=== PATIENT | female | born 1960 | race Caucasian/White ===

== ENCOUNTER → 2017-01-30 | Outpatient (CLI) | payer BC ==
[~2017-01-30] MED LIST: ASPI81TA28 PO; ATOR10TA82 PO; DICL50TA3 PO; DICY20TA10 PO; FLUT0.15 NAE; LISI-725 PO; LISI5TAB3 PO; MULT-506 PO; PSEU60TA80 PO; TRAM-10 PO
[2017-01-30 10:30] LABS: CALCIUM 9.1 mg/dl (8.5-10.1)
[2017-01-30 10:41] LABS: ALT/SGPT 31 U/L (12-78); BLOOD UREA NITROGEN 19 mg/dl (7-18); BUN/CREATININE RATIO 27.4 (10-20); CARBON DIOXIDE 30 mmol/L (21-32); CHLORIDE 107 mmol/L (98-107); CHOLESTEROL 146 mg/dl (0-200); CREATININE 0.68 mg/dl (0.60-1.20); GLUCOSE 104 mg/dl (70-99); SODIUM 143 mmol/L (136-145); TRIGLYCERIDES 85 mg/dl (0-150); VERY LOW DENSITY LIPOPROT CALC 17 mg/dl
[2017-01-30 10:44] LABS: ALB/GLOB RATIO 1.3 (0.9-2); ALKALINE PHOSPHATASE 92 U/L (45-117); AST/SGOT 17 U/L (15-37); CHOLESTEROL/HDL RATIO 2.8; HDL CHOLESTEROL 53 mg/dl; LDL CHOLESTEROL CALCULATED 76 mg/dl
== END | disposition home or self-care (01) ==
LOC: C.LAB 08:21
PROVIDERS: ATTEND Family Medicine
DX: I10 Essential (primary) hypertension (principal); E78.00 Pure hypercholesterolemia, unspecified

== ENCOUNTER → 2017-02-17 | Outpatient (CLI) | payer BC ==
--- NOTE | 2017-02-17 08:29 | DIAGNOSTIC IMAGING REPORT ---
ABDOMINAL ULTRASOUND, RIGHT UPPER QUADRANT HISTORY: R10.11 Intermittent right upper quadrant abdominal [id number]. COMPARISON: Abdomen and pelvis CT 08/11/2013. FINDINGS: Pancreas: The pancreas demonstrates a normal echotexture. Liver: Unremarkable. Gallbladder: No gallbladder wall thickening. No gallstones. CBD: 6 mm which is top normal in diameter. Right kidney: No hydronephrosis. IMPRESSION: No significant abnormality identified within the right upper quadrant. Electronically signed by: Chris Gates M.D. 02/17/2017 8:28 AM Dictated Date/Time: 02/17/2017 8:27 AM
[2017-02-17 10:55] LABS: BASO % 0.5 %; BASO ABS # 0.03 K/uL (0-0.2); COMPLETE YES; EOS % 1.4 %; HEMATOCRIT 43.1 % (37-47); IG% 0.2 %; LYMPH ABS # 2.62 K/uL (1.2-3.4); MEAN CELL VOLUME 94.3 fL (80-100); MEAN CORPUSCULAR HEMOGLOBIN 31.1 pg (25-34); MEAN CORPUSCULAR HGB CONC 32.9 g/dl (32-36); MONO % 8.1 %; NEUT % 48.8 %; PLATELET COUNT 194 K/uL (130-400); RED BLOOD COUNT 4.57 M/uL (4.2-5.4); WHITE BLOOD COUNT 6.39 K/uL (4.8-10.8)
[2017-02-17 10:59] LABS: AMYLASE 51 U/L (25-115)
== END | disposition home or self-care (01) ==
LOC: C.ULTRBC 07:52
PROVIDERS: ATTEND Nurse Practitioner Adult Health
DX: R10.11 Right upper quadrant pain (principal)

== ENCOUNTER → 2017-09-08 | Outpatient (CLI) | payer BC ==
[~2017-09-08] MED LIST changes: -ATOR10TA82 PO; -DICL50TA3 PO; -FLUT0.15 NAE; -LISI-725 PO; -PSEU60TA80 PO; +SINCALIDE IV ONE; +SODIUM CHLORIDE 0.9% IV ONE; -TRAM-10 PO
--- NOTE | 2017-09-08 12:47 | DIAGNOSTIC IMAGING REPORT ---
NUCLEAR MEDICINE HEPATOBILIARY SCAN WITH EJECTION FRACTION HISTORY: R10.11 Intermittent right upper quadrant abdominal [id number] COMPARISON: Abdominal ultrasound 02/17/2017. TECHNIQUE: Immediately following the intravenous administration of 5.5 mCi Tc-99m Choletec, dynamic anterior abdominal imaging pre/post 1.95 mcg of Kinevac was performed. FINDINGS: Uniform hepatic tracer accumulation is shown. Prompt intrahepatic biliary excretion is seen. The gallbladder, common bile duct, and small bowel are all visualized by 25 minutes. This appearance represents the normal sequence of biliary excretion. The gall bladder ejection fraction following administration of Kinevac was 21% (normal >35%). IMPRESSION: 1. No evidence for cystic duct obstruction. 2. Gallbladder ejection fraction calculated to be 21 %. This is abnormally low and could represent biliary dyskinesia. Electronically signed by: Crhis Gates M.D. 09/08/2017 12:46 PM Dictated Date/Time: 09/08/2017 12:44 PM
== END | disposition home or self-care (01) ==
LOC: C.NUCL 10:05
PROVIDERS: ATTEND Nurse Practitioner Adult Health
DX: R10.11 Right upper quadrant pain (principal)

== ENCOUNTER → 2017-09-22 | Day surgery (SDC) | payer BC ==
[2017-09-17 10:04] VITALS: BMI 35.0
--- NOTE | 2017-09-17 10:34 | PAT Medication Instructions ---
Service Date Sep 17, 2017. Current Home Medication List Atorvastatin (Lipitor), 10 MG PO Q2D Diclofenac (Voltaren), 50 MG PO QAM Fluticasone Propionate (Nasal) (Flonase Allergy Relief), 1-2 SPRAY JUWAN UD PRN for Seasonal Allergies Lisinopril (Zestril), 10 MG PO QAM Pseudoephedrine-Guaifenesin (Mucinex D), 1 TAB PO BID PRN for Seasonal Allergies Tramadol (Ultram), 1 TAB PO UD PRN for Pain Medication Instructions For Your Scheduled Surgery - Hold the following medications the morning of surgery: Lisinopril (Zestril), 10 MG PO QAM Pseudoephedrine-Guaifenesin (Mucinex D), 1 TAB PO BID PRN for Seasonal Allergies Diclofenac (Voltaren), 50 MG PO QAM (otherwise okay to continue per surgeon) - Take the following medications the morning of surgery with a sip of water OTHERWISE NOTHING TO EAT OR DRINK AFTER MIDNIGHT: Fluticasone Propionate (Nasal) (Flonase Allergy Relief), 1-2 SPRAY JUWAN UD PRN for Seasonal Allergies Tramadol (Ultram), 1 TAB PO UD PRN for Pain (may take if needed up to 4 hours prior to surgery) Atorvastatin (Lipitor), 10 MG PO Q2D - Take the following medications as scheduled the night before surgery: Fluticasone Propionate (Nasal) (Flonase Allergy Relief), 1-2 SPRAY JUWAN UD PRN for Seasonal Allergies Tramadol (Ultram), 1 TAB PO UD PRN for Pain Pseudoephedrine-Guaifenesin (Mucinex D), 1 TAB PO BID PRN for Seasonal Allergies If you have any questions please call us at [phone] or [phone] or [phone]
[2017-09-17 11:55] LABS: BASO % 0.5 %; BASO ABS # 0.03 K/uL (0-0.2); COMPLETE YES; HEMATOCRIT 39.7 % (37-47); LYMPH % 36.1 %; LYMPH ABS # 2.13 K/uL (1.2-3.4); MEAN CELL VOLUME 94.7 fL (80-100); MEAN CORPUSCULAR HEMOGLOBIN 31.3 pg (25-34); MEAN PLATELET VOLUME 10.8 fL (7.4-10.4); MONO % 8.1 %; NEUT % 54.3 %; PLATELET COUNT 195 K/uL (130-400); RED BLOOD COUNT 4.19 M/uL (4.2-5.4)
[2017-09-17 12:06] LABS: BUN/CREATININE RATIO 28.1 (10-20); CREATININE 0.71 mg/dl (0.60-1.20); POTASSIUM 4.1 mmol/L (3.5-5.1)
[~2017-09-22] VITALS: Ht 170.2 cm; Wt 102.0 kg
[~2017-09-22] MED LIST changes: -ASPI81TA28 PO; +ATOR10TA82 PO; +ATROPINE SULFATE 0.1 MG/ML 5ML SYR IV PRN; +BUPIVACAINE/EPINEPHRINE 0.5% MPF 1:200,000 30 ML VIAL ONE; +CEFAZOLIN 2000MG IV PUSH 10 ML IV SCH; +CHECK SCOPOLAMINE PATCH PLACEMENT SCH; +DEXAMETHASONE SOD INJ 4 MG/ML VIAL ONE; +DICL50TA3 PO; -DICY20TA10 PO; +EpHEDrine SULFATE INJ 50 MG/ML AMP IV PRN; +EpHEDrine SULFATE INJ 50 MG/ML AMP ONE; +FENTANYL CITRATE INJ 50 MCG/1 ML 2 ML VIAL ONE; +FLUT0.15 NAE; +GLYCOPYRROLATE INJ 0.2 MG/ML VIAL ONE; +HYDR-5688 PO; +HYDROCODONE/ACETAMOPHEN 5/325MG TAB PO PRN; +HYDROmorphone INJ 1 MG/ML SYR ONE; +LACTATED RINGER'S 1000ML 1,000 ML IV SCH; +LIDOCAINE HCL 2% 2 ML VIAL (20MG/ML) ONE; +LISI-725 PO; -LISI5TAB3 PO; +MIDAZOLAM HCL 1 MG/ML 2ML VIAL ONE; -MULT-506 PO; +NEOSTIGMINE METHYLSULFATE 5 MG/5 ML SYR ONE; +ONDANSETRON INJ 2 MG/ML 2 ML VIAL IV PRN; +ONDANSETRON INJ 2 MG/ML 2 ML VIAL ONE; +PHENYLEPHRINE 100MCG/ML 5ML SYR IV PRN; +PHENYLEPHRINE HCL INJ 10 MG/ML VIAL ONE; +PROPOFOL IV EMULSION 10 MG/ML 20 ML VIAL IV ONE; +PSEU60TA80 PO; +ROCURONIUM BROMIDE 10 MG/ML 5 ML VIAL IV ONE; +SCOPOLAMINE 1.5 MG TDSY TD SCH; -SINCALIDE IV ONE; +SODIUM CHLORIDE 0.9% 1000ML 1,000 ML IV SCH; -SODIUM CHLORIDE 0.9% IV ONE; +TRAM-10 PO
[2017-09-22 05:47] VITALS: BP 139/83; PULSE 81; TEMP 37; O2SAT 96; Ht 170.2 cm; Wt 102.0 kg
--- NOTE | 2017-09-22 06:59 | History & Physical Bridge Note ---
H&P Re-Evaluation Bridge Note: I have examined the patient, reviewed the History & Physical and in the interval since the performance of the History & Physical I have noted the following changes of clinical significance: No changes noted
[2017-09-22] MEDS: HYDROmorphone INJ 2 MG/ML SYR/VIAL IV PRN ×3 (08:13→08:23)
--- NOTE | 2017-09-22 08:22 | Discharge Instructions ---
Discharge Instructions Date of Service Sep 22, 2017. Visit Reason for Visit: Biliary Dyskinesia Discharge Discharge Diagnosis / Problem: Biliary Dyskinesia Discharge Goals Goal(s): Decrease discomfort, Improve function Activity Recommendations Activity Limitations: as noted below Lifting Limitations: no more than 10 pounds, until after follow-up appointment Exercise/Sports Limitations: until after follow-up appointment Shower/Bathe: tomorrow (Please do not submerge incision ( no baths, pools or hottubs)) Driving or Machine Use: resume 3 days after discharge (Please do not drive while using narcotic pain medication. ) Anesthesia . Post Anesthesia Instructions: If you have had General Anesthesia or IV Sedation: * Do not drive today. * Resume driving when surgeon permits. * Do not make important decisions or sign legal documents today. * Call surgeon for: 1. Temperature elevations greater than 101 degrees F. 2. Uncontrollable pain. 3. Excessive bleeding. 4. Persistent nausea and vomiting. 5. Medication intolerance (nausea, vomiting or rash). * For nausea and vomiting use only clear liquids such as: tea, soda, bouillon until nausea subsides, then gradually increase diet as tolerated. * If you have any concerns or questions, call your surgeon's office. If physician is unavailable and it is an emergency, call 911 or go to the nearest emergency room. . Instructions / Follow-Up Instructions / Follow-Up You have surgical glue covering your incision sites. Please allow this to fall off on its own. Please follow-up with Dr. Pandey in 2 weeks. Please contact our office at to schedule an appointment if you have not done so already. [facility]. [address] [place] [address] Diet Recommendations Recommended Home Diet: no limitations, resume previous diet Procedures Procedures Performed: Laparoscopic Cholecystectomy, Repair of Umbilical Hernia Pending Studies Studies pending at discharge: yes List of pending studies: Pathology Medical Emergencies . Who to Call and When: Medical Emergencies: If at any time you feel your situation is an emergency, please call 911 immediately. . Non-Emergent Contact Non-Emergency issues call your: Primary Care Provider, Surgeon Call Non-Emergent contact if: you have a fever, temperature is above 101.5, your pain is not controlled, your pain is worsening, wound has increased drainage, wound has increased redness . . "Provider Documentation" section prepared by Antonio Ansari. . [place] Drug Monitoring Program Search Results: patient reviewed within database, no issues identified
--- NOTE | 2017-09-22 08:34 | [facility] Operative Report ---
Operative Report Operative Date Sep 22, 2017. Pre-Operative Diagnosis Biliary Dyskinesia Post-Operative Diagnosis Biliary Dyskinesia, Umbilical Hernia; hiatal hernia Procedure(s) Performed Laparoscopic Cholecystectomy, Repair of Umbilical Hernia Surgeon Dr. Harjeet Pandey Carbon Accountant Surgeon(s) Antonio Ansari PA-C Estimated Blood Loss 5ml Findings umbilical hernia, normal appearance to the gallbladder, moderate sized hiatal hernia Specimens A.) Gallbladder and contents Anesthesia get Disposition Recovery Room / PACU Description of Procedure After informed consent was obtained the patient was taken to the operating room room and placed in the supine position. After successful intubation the abdomen was sterilely prepped and draped in usual fashion. After the patient was relaxed there was an obvious umbilical hernia that I had not seen before. I made an small incision directly over top of it and carried it down through the soft tissue using electrocautery. I encountered a hernia sac with some preperitoneal fat incarcerated within it. I excised the fat as well as the hernia sac. I then placed over Vicryl stay sutures in the edges of the defect and use blunt finger penetration and of the peritoneum. A finger sweep was performed and a 12 mm Abdullahi trocar was placed. The abdomen was insufflated to 18 mmHg. The laparoscope was inserted and the abdomen was examined in 360 degrees. A subxiphoid 5 mm port and 2 right upper quadrant 5 mm ports were placed under direct vision. The the patient was then placed in reverse Trendelenburg position and slightly airplaned to the left. We began by looking around the abdomen. I elevated the left lobe liver and noted about a 4-5 cm hernia defect with a small amount of gastric incarceration which easily reduced. No other abnormalities were identified. The gallbladder was grasped and elevated superiorly and laterally. [place] dissector was used to take down adhesions around the neck of the gallbladder. The cystic duct was readily identified and skeletonized. It was clipped twice proximally once distally and transected. In similar fashion the cystic artery was identified skeletonized clipped and divided. The gallbladder was removed from the gallbladder fossa intact. It was placed into an Endo Catch bag. Several small bleeding points on the gallbladder fossa were controlled using electrocautery. Thorough irrigation of the upper abdomen was performed. At the end of the procedure there was adequate hemostasis and no evidence of a bile leak. The gallbladder as well as all the trochars were removed. The abdomen was desufflated. We closed the umbilical hernia defect using multiple 0 Vicryl sutures in figure-of- eight fashion. We thoroughly irrigated all the wounds and closed the skin using 4-0 Monocryl. Marcaine was injected around all the incisions for postoperative analgesia and skin glue used as a dressing. The patient was awaken extubated and transferred recovery in stable condition I attest to the content of the Intraoperative Record and any orders documented therein. Any exceptions are noted below.
[2017-09-22 09:00] VITALS: BP 146/86; PULSE 64; TEMP 36.6; O2SAT 95
[2017-09-22 09:25] VITALS: BP 155/86; PULSE 63; O2SAT 93
[2017-09-22 09:54] VITALS: BP 174/88; PULSE 58; TEMP 36.6; O2SAT 94
--- NOTE | 2017-09-22 10:09 | Anesthesiology Progress Note ---
Anesthesia Post Op Note Date & Time Sep 22, 2017 at 10:09 Vital Signs Pain Intensity: 5 Vital Signs Past 12 Hours Date Time Temp Pulse Resp B/P (MAP) Pulse Ox O2 Delivery O2 Flow Rate FiO2 09/22/17 09:54 36.6 58 18 174/88 94 Room Air 09/22/17 09:25 63 18 155/86 93 Room Air 09/22/17 09:00 36.6 64 18 146/86 95 Room Air 09/22/17 08:55 36.1 63 15 136/82 98 Nasal Cannula 2 09/22/17 08:45 71 14 131/74 96 Nasal Cannula 2 09/22/17 08:35 58 12 140/87 94 Nasal Cannula 2 09/22/17 08:25 56 12 137/80 100 Oxymask 10 09/22/17 08:15 59 14 144/81 100 Oxymask 10 09/22/17 08:09 35.4 63 14 144/79 100 Oxymask 10 09/22/17 05:47 37.0 81 18 139/83 (101) 96 Room Air Notes Mental Status: alert / awake / arousable, participated in evaluation Pt Amnestic to Procedure: Yes Nausea / Vomiting: adequately controlled Pain: adequately controlled Airway Patency, RR, SpO2: stable & adequate BP & HR: stable & adequate Hydration State: stable & adequate Anesthetic Complications: no major complications apparent
== END | disposition home or self-care (01) ==
LOC: C.ACU 05:15
PROVIDERS: ATTEND Surgery
DX: K82.8 Other specified diseases of gallbladder (principal); K42.9 Umbilical hernia without obstruction or gangrene; K44.9 Diaphragmatic hernia without obstruction or gangrene; I10 Essential (primary) hypertension; M19.90 Unspecified osteoarthritis, unspecified site; E78.00 Pure hypercholesterolemia, unspecified; G51.0 Bell's palsy; Z68.35 Body mass index [BMI] 35.0-35.9, adult; E66.9 Obesity, unspecified; Z90.710 Acquired absence of both cervix and uterus; Z98.890 Other specified postprocedural states; Z79.899 Other long term (current) drug therapy; Z82.49 Family history of ischemic heart disease and other diseases of the circulatory system; Z83.3 Family history of diabetes mellitus; Z82.0 Family history of epilepsy and other diseases of the nervous system

== ENCOUNTER 2017-11-19 05:03 | Inpatient (IN) | payer BC ==
[2017-10-20 12:29] VITALS: BMI 34.0
--- NOTE | 2017-10-20 13:09 | PAT Medication Instructions ---
Service Date Oct 20, 2017. Current Home Medication List Atorvastatin (Lipitor), 10 MG PO Q2D Diclofenac (Voltaren), 50 MG PO QAM Fluticasone Propionate (Nasal) (Flonase Allergy Relief), 1-2 SPRAY JUWAN UD PRN for Seasonal Allergies Guaifenesin (Mucinex Maximum Strength), 1 TAB PO HS Lisinopril (Zestril), 10 MG PO QAM Multivitamin (Multivitamin), 1 TAB PO DAILY Tramadol (Ultram), 1 TAB PO QID [Fiber Gummies], 1 TAB PO QPM Medication Instructions For Your Scheduled Surgery - Hold the following medications 7 days prior to surgery: Diclofenac (Voltaren), 50 MG PO QAM - Hold the following medications the morning of surgery: Multivitamin (Multivitamin), 1 TAB PO DAILY Lisinopril (Zestril), 10 MG PO QAM - Take the following medications the morning of surgery with a sip of water: Fluticasone Propionate (Nasal) (Flonase Allergy Relief), 1-2 SPRAY JWUAN UD PRN for Seasonal Allergies (if needed) Atorvastatin (Lipitor), 10 MG PO Q2D Tramadol (Ultram), 1 TAB PO QID (if needed, can be taken up to four hours before surgery) - Take the following medications as scheduled the night before surgery: [Fiber Gummies], 1 TAB PO QPM Guaifenesin (Mucinex Maximum Strength), 1 TAB PO HS Fluticasone Propionate (Nasal) (Flonase Allergy Relief), 1-2 SPRAY JUWAN UD PRN for Seasonal Allergies (if needed) Tramadol (Ultram), 1 TAB PO QID If you have any questions please call us at [phone] or [phone] or [phone]
--- NOTE | 2017-10-20 13:40 | DIAGNOSTIC IMAGING REPORT ---
CHEST 2 VIEWS ROUTINE CLINICAL HISTORY: PAT preoperative evaluation COMPARISON STUDY: No previous studies for comparison. FINDINGS: The bones soft tissues and hemidiaphragms are normal. The cardiomediastinal silhouette is normal. The lungs are clear. The pulmonary vasculature is normal. IMPRESSION: Negative chest. The above report was generated using voice recognition software. It may contain grammatical, syntax or spelling errors. Electronically signed by: Francesco Abad M.D. 10/20/2017 1:39 PM Dictated Date/Time: 10/20/2017 1:39 PM
[2017-10-20 14:00] LABS: BASO % 0.5 %; BASO ABS # 0.03 K/uL (0-0.2); EOS % 2.7 %; EOS ABS # 0.15 K/uL (0-0.5); HEMATOCRIT 38.5 % (37-47); LYMPH % 42.6 %; LYMPH ABS # 2.33 K/uL (1.2-3.4); MEAN CELL VOLUME 93.9 fL (80-100); MEAN CORPUSCULAR HEMOGLOBIN 31.7 pg (25-34); MEAN CORPUSCULAR HGB CONC 33.8 g/dl (32-36); MEAN PLATELET VOLUME 10.3 fL (7.4-10.4); MONO % 6.8 %; MONO ABS # 0.37 K/uL (0.11-0.59); NEUT % 47.4 %; NEUT ABS # 2.59 K/uL (1.4-6.5); PLATELET COUNT 214 K/uL (130-400); RED CELL DISTRIBUTION WIDTH CV 12.4 % (11.5-14.5); RED CELL DISTRIBUTION WIDTH SD 42.1 fL (36.4-46.3); WHITE BLOOD COUNT 5.47 K/uL (4.8-10.8)
[2017-10-20 14:15] LABS: PTT PATIENT 28.1 SECONDS (21.0-31.0)
[2017-10-20 14:49] LABS: HEMOGLOBIN A1C 5.8 % (4.5-5.6)
[2017-10-20 15:41] LABS: ALBUMIN 3.7 gm/dl (3.4-5.0); CALCIUM 8.9 mg/dl (8.5-10.1); CREATININE 0.69 mg/dl (0.60-1.20); POTASSIUM 3.9 mmol/L (3.5-5.1)
--- NOTE | 2017-10-28 10:51 | HISTORY & PHYSICAL EXAMINATION ---
DATE OF ADMISSION: 11/19/2017 CHIEF COMPLAINT: Left knee pain. HISTORY OF PRESENT ILLNESS: Ms. Ramires is a 57-year-old female with a multiple year history of left knee pain. The patient rates her pain in 8-10/10. She has pain with her daily activities. She has limited standing and walking tolerance. Pain is worse with weightbearing. The patient has been taking tramadol. She has had injections, bracing and a walking program without relief. She has failed conservative treatment and is scheduled for left knee replacement. PAST MEDICAL HISTORY: Hypertension, hypercholesterolemia. She denies heart disease, diabetes or DVT. PAST SURGICAL HISTORY: , hysterectomy, hernia repair, cholecystectomy and knee arthroscopy. ALLERGIES: IVP DYE. SOCIAL HISTORY: The patient drinks one drink per week. She lives in a 2-story home. 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 FAMILY HISTORY: Negative for DVT. MEDICATIONS: Lisinopril 1 tablet daily, tramadol 50 mg p.r.n., diclofenac 75 mg t.i.d. REVIEW OF SYSTEMS: See HPI. Ten other systems reviewed, all negative. PHYSICAL EXAMINATION: VITAL SIGNS: Height 5 foot 7 inches, weight 221 pounds, BMI is 35. GENERAL: This is a well-developed, well-nourished female who is alert and oriented x3. Mood and affect are appropriate. HEENT: Normocephalic, atraumatic. Mucous membranes are moist and intact. NECK: Supple without lymphadenopathy. HEART: Regular rate and rhythm without murmurs, rubs or gallops. LUNGS: Clear to auscultation without wheezes or rhonchi. ABDOMEN: Soft and nontender. Bowel sounds are equal and active. EXTREMITIES: No ecchymosis, redness or warmth. She has varus deformity. Range of motion is from 5-110 degrees with +2 laxity. She has mild distal edema. She is neurovascularly intact with +5/5 strength. X-RAY EXAMINATION: AP and lateral views show joint space narrowing and osteophyte formation. IMPRESSION: Degenerative joint disease, left knee. PLAN: The patient will be admitted for a left total knee arthroplasty. We will plan on aspirin for DVT prophylaxis. The patient will have [facility] for home physical therapy, referral has been placed preoperatively.
[~2017-11-19] VITALS: Ht 170.2 cm; Wt 99.0 kg
[2017-11-19] VITALS (10 sets, daily range): BP systolic 110–157; BP diastolic 70–92; PULSE 66–94; TEMP 36.3–37.1; O2SAT 94–98; Ht 170.2 cm; Wt 99.0 kg
[~2017-11-19 05:03] MED LIST changes: -ATROPINE SULFATE 0.1 MG/ML 5ML SYR IV PRN; -BUPIVACAINE/EPINEPHRINE 0.5% MPF 1:200,000 30 ML VIAL ONE; -CEFAZOLIN 2000MG IV PUSH 10 ML IV SCH; -CHECK SCOPOLAMINE PATCH PLACEMENT SCH; -DEXAMETHASONE SOD INJ 4 MG/ML VIAL ONE; -EpHEDrine SULFATE INJ 50 MG/ML AMP IV PRN; -EpHEDrine SULFATE INJ 50 MG/ML AMP ONE; -FENTANYL CITRATE INJ 50 MCG/1 ML 2 ML VIAL ONE; +FIBER GUMMIES PO; -GLYCOPYRROLATE INJ 0.2 MG/ML VIAL ONE; +GUAI1TAB69 PO; -HYDR-5688 PO; -HYDROCODONE/ACETAMOPHEN 5/325MG TAB PO PRN; -HYDROmorphone INJ 1 MG/ML SYR ONE; -LACTATED RINGER'S 1000ML 1,000 ML IV SCH; -LIDOCAINE HCL 2% 2 ML VIAL (20MG/ML) ONE; -MIDAZOLAM HCL 1 MG/ML 2ML VIAL ONE; +MULT-506 PO; -NEOSTIGMINE METHYLSULFATE 5 MG/5 ML SYR ONE; -ONDANSETRON INJ 2 MG/ML 2 ML VIAL IV PRN; -ONDANSETRON INJ 2 MG/ML 2 ML VIAL ONE; -PHENYLEPHRINE 100MCG/ML 5ML SYR IV PRN; -PHENYLEPHRINE HCL INJ 10 MG/ML VIAL ONE; -PROPOFOL IV EMULSION 10 MG/ML 20 ML VIAL IV ONE; -PSEU60TA80 PO; -ROCURONIUM BROMIDE 10 MG/ML 5 ML VIAL IV ONE; -SCOPOLAMINE 1.5 MG TDSY TD SCH; -SODIUM CHLORIDE 0.9% 1000ML 1,000 ML IV SCH
[2017-11-19] MEDS ORDERED: DEXAMETHASONE 4 MG TAB PO SCH (06:00)
[2017-11-19] MEDS ORDERED: ROPIVACAINE 5MG/ML 30 ML 150 MG, BUPIVACAINE 0.5% MPF INJ 30 ML, EpINEphrine HCL INJ 0.... INFIL SCH ×8 (06:00)
[2017-11-19] MEDS ORDERED: LACTATED RINGER'S 1000ML 1,000 ML IV SCH (06:00)
[2017-11-19] MEDS ORDERED: ACETAMINOPHEN 500 MG TAB PO SCH (06:00)
[2017-11-19] MEDS ORDERED: LACTATED RINGER'S 1000ML IV SCH (06:00)
[2017-11-19] MEDS ORDERED: FAMOTIDINE 20 MG TAB PO SCH (06:00)
[2017-11-19] MEDS ORDERED: CEFAZOLIN 2000MG IV PUSH 15 ML IV SCH (06:00)
[2017-11-19] MEDS ORDERED: METOCLOPRAMIDE HCL 10 MG TAB PO SCH (06:00)
[2017-11-19] MEDS ORDERED: CeleBREX 200 MG CAP PO SCH (06:00)
[2017-11-19] MEDS ORDERED: LACTATED RINGER'S 1000ML 500 ML IV SCH (06:00)
[2017-11-19] MEDS ORDERED: GABAPENTIN 300 MG CAP PO SCH (06:00)
[2017-11-19] MEDS: TRANEXAMIC ACID INJ 1,000 MG in SYRINGE 0 ML IV SCH ×2 (06:30→06:59)
[2017-11-19] MEDS ORDERED: BUPIVACAINE 0.5 % 5 MG/1 ML PF 10ML VIAL ONE (06:34)
[2017-11-19] MEDS ORDERED: ORTHO JOINT ANESTHETIC ONE (06:35)
[2017-11-19] MEDS ORDERED: BUPIVACAINE 0.25% 30 ML VIAL ONE (06:35)
[2017-11-19] MEDS ORDERED: POVIDONE-IODINE OP SOLN 30 ML BTL ONE (06:36)
[2017-11-19] MEDS ORDERED: BACITRACIN 50000 UNIT VIAL ONE (06:36)
[2017-11-19] MEDS ORDERED: MIDAZOLAM HCL 1 MG/ML 2ML VIAL ONE (06:46)
[2017-11-19] MEDS ORDERED: PROPOFOL IV EMULSION 10 MG/ML 20 ML VIAL IV ONE ×2 (06:46→07:38)
[2017-11-19] MEDS ORDERED: PHENYLEPHRINE 100MCG/ML 5ML SYR ONE (06:46)
[2017-11-19] MEDS ORDERED: EpHEDrine SULFATE 50MG/5ML SYR ONE (06:46)
[2017-11-19] MEDS ORDERED: FENTANYL CITRATE INJ 50 MCG/1 ML 2 ML VIAL ONE (06:46)
[2017-11-19] MEDS ORDERED: LIDOCAINE HCL 2% 2 ML VIAL (20MG/ML) ONE (06:46)
[2017-11-19] MEDS ORDERED: PROMETHAZINE HCL INJ 12.5 MG in SODIUM CHLORIDE 0.9% 50ML 50 ML IV PRN (07:00)
[2017-11-19] MEDS ORDERED: ONDANSETRON INJ 2 MG/ML 2 ML VIAL IV PRN (07:00)
[2017-11-19] MEDS ORDERED: FENTANYL CITRATE INJ 50 MCG/1 ML 2 ML VIAL IV PRN (07:00)
[2017-11-19] MEDS ORDERED: ATROPINE SULFATE 0.1 MG/ML 5ML SYR IV PRN (07:00)
[2017-11-19] MEDS ORDERED: EpHEDrine SULFATE INJ 50 MG/ML AMP IV PRN (07:00)
--- NOTE | 2017-11-19 08:27 | [facility] Post Operative Brief Note ---
Immediate Operative Summary Operative Date Nov 19, 2017. Pre-Operative Diagnosis Degenerative joint disease, left knee. Post-Operative Diagnosis Degenerative joint disease, left knee. Procedure(s) Performed Left Total Knee Arthroplasty Surgeon Dr. Eric Sheikh Engineering Aide Surgeon(s) Theodore Kebede PA-C Estimated Blood Loss 10mL Findings Consistent with Post-Op Diagnosis Specimens Permanent: A. Left Knee Bone and Tissue Anesthesia Type MAC Spinal Regional Complication(s) none Disposition Accompanied Pt To Recover: no Disposition: Recovery Room / PACU
--- NOTE | 2017-11-19 08:39 | OPERATIVE REPORT ---
DATE OF OPERATION: 11/19/2017 PREOPERATIVE DIAGNOSIS: Osteoarthritis, left knee. POSTOPERATIVE DIAGNOSIS: Osteoarthritis, left knee. PROCEDURE: Left total knee arthroplasty. SURGEON: Dr. Sheikh. RESERVOIR ENGINEER: Theodore Kebede PA-C ANESTHESIA: Spinal. COMPLICATIONS: None. IMPLANTS USED: Femoral size 4, tibia size 4, tibial poly 16 and patella size 36. OPERATION AND FINDINGS: Following induction of spinal anesthesia, the patient's left leg was prepped and draped in the usual sterile manner. Limb was exsanguinated with an Esmarch bandage and tourniquet was inflated to 350 mmHg. A longitudinal incision was made anteriorly. Subcutaneous tissue was sharply dissected. Electrocautery was used for hemostasis. Prepatellar bursa was incised and median parapatellar incision was performed. Patella was everted and the knee was flexed. Fat pad was removed to aid in visualization and the anterior and posterior cruciate ligaments were removed. The medial face of the tibia was cleared of soft tissue first with a Bovie and a Bone elevator. This tissue was retracted posteriorly using a blunt Hohmann. A Siddiqui retractor was used to expose the synovium above on the anterior aspect of the femur and this was removed down to bone. The PSI guide was placed on the distal femur and two pins were placed anteriorly and kept in position and two additional pins were placed distally and removed. The distal femoral cutting block was placed in position and the distal femoral cut was used in the +0 setting. Next, the cutting block was removed and the femoral 4 block was placed in the distal end of the femur. Care was taken to ensure appropriate external rotation and feeler gauge was used to ensure no notching would occur. The femoral block was centered on the distal femur and in the medial and lateral direction and was fixed using two bone screws. The gold pins were then removed. The oscillating saw was used to create the bone cuts and the distal femoral cutting block was removed and the reciprocating saw was used to further trim the femoral cuts as well as a deep in the area for the trochlear groove. Next, posterior condyle remnants were removed. Following this, a meniscal clamp and knife were utilized to remove the anterior portion of both medial and lateral meniscus. The proximal tibia PSI guide was placed into position and the proximal tibial cutting guide was screwed into position. The extra medullary alignment guide was utilized to ensure appropriate alignment. The proximal tibia was cut and the proximal tibial cutting block was removed and this bone fragment was removed. The appropriate guide was used to perform the notch cut on the distal femur and a lamina uniforms sales representative and a cochlear knife were utilized to finish both medial and lateral meniscectomies to remove any remnants of the posterior or anterior cruciate ligaments. Following this, the distal femoral component was impacted into position and blunt Renea was used to sublux the tibia anteriorly. The proximal tibia was sized and a 4 tibial tray was chosen as the size to be used. This was put into position and appropriate external rotation and a double check with extramedullary alignment guide was performed. The canal for the tibial stem was prepared first with a 17 mm drill and then the punch and a mallet and the trial tibial poly was placed. A 16 was chosen the size to be used. It was brought to extension and the patella was prepared with the patellar reamer. A 36 component was chosen the size to be used. The trial component was placed and knee was taken through a full range of motion and there was found to be no lateral subluxation of the tibia. No lateral release was required. The trials were all removed. The final components were obtained and assembled. Cement was mixed. The knee was thoroughly irrigated and the ortho mix was injected about the knee joint. The final components were cemented into position. After thoroughly suctioning and drying the bone ends, all excess cement was removed. The knee was held in extension while the cement hardened. The wound was irrigated and closed over a Hemovac drain. #1 Vicryl was used to close the extensor mechanism. Subcutaneous tissues closed using 0 Dexon. Skin was closed with segun. Sterile dressing of Adaptic, 4 x 4's, sterile Webril, and Al was applied. The patient tolerated the procedure well. Due to the complex nature of the procedure, the entire surgery was performed with the operational assistance of Theodore Kebede PA-C. The assistant professor of chemistry, under direct supervision, was involved in the actual performance of all aspects of the surgical procedure including hemostasis, tissue retraction and incision, instrument management, patient positioning, and wound closure. DISPOSITION: Recovery room, stable. I attest to the content of the Intraoperative Record and any orders documented therein. Any exception s are noted below.
[2017-11-19] MEDS ORDERED: ZOLPIDEM TARTRATE 5 MG TAB PO PRN (09:00)
[2017-11-19] MEDS ORDERED: ALUMINUM/MAGNESIUM/SIMETH (MAALOX MAX) 30 ML UDC PO PRN (09:00)
[2017-11-19] MEDS ORDERED: MAGNESIUM HYDROXIDE SUSP 30 ML UDC PO PRN (09:00)
[2017-11-19] MEDS ORDERED: METOCLOPRAMIDE HCL INJ 5 MG/ML 2 ML VIAL IV PRN (09:00)
[2017-11-19] MEDS ORDERED: MoRPHine SULFATE 2 MG/ML CARP IV PRN (09:00)
[2017-11-19] MEDS ORDERED: CEFAZOLIN IV 2,000 MG in DEXTROSE 5% 50ML 50 ML IV SCH (09:00)
--- NOTE | 2017-11-19 09:22 | DIAGNOSTIC IMAGING REPORT ---
L KNEE 1 OR 2 VIEWS ROUTINE HISTORY: 57 years-old Female AP/LATERAL IN PACU LEFT KNEE status post left knee total joint arthroplasty. Degenerative joint disease. COMPARISON: None available TECHNIQUE: 2 views of the left knee FINDINGS: Postoperative changes compatible with recent placement of a left knee total joint arthroplasty with patellar resurfacing. Alignment is satisfactory. No periprosthetic fracture or retained foreign body identified. Volar gauze material is noted along with expected postsurgical soft tissue swelling and deep tissue air. Surgical drain is in place. IMPRESSION: Left knee total joint arthroplasty and patellar resurfacing with satisfactory alignment. The above report was generated using voice recognition software. It may contain grammatical, syntax or spelling errors. Electronically signed by: Doc James M.D. 11/19/2017 9:20 AM Dictated Date/Time: 11/19/2017 9:19 AM
[2017-11-19] MEDS ORDERED: MoRPHine SULFATE 4 MG/ML 1 ML CARP\\VIAL IV PRN (09:30)
[2017-11-19] MEDS ORDERED: MoRPHine SULFATE 10 MG/ML CARP/VIAL IV PRN (09:30)
--- NOTE | 2017-11-19 09:42 | Anesthesiology Progress Note ---
Anesthesia Post Op Note Date & Time Nov 19, 2017 at 09:42 Vital Signs Pain Intensity: 0 Vital Signs Past 12 Hours Date Time Temp Pulse Resp B/P (MAP) Pulse Ox O2 Delivery O2 Flow Rate FiO2 11/19/17 09:35 36.6 71 20 119/76 98 Nasal Cannula 2 11/19/17 09:25 36.6 68 18 120/72 98 Nasal Cannula 2 11/19/17 09:15 72 14 114/71 97 Nasal Cannula 2 11/19/17 09:05 74 15 118/73 96 Nasal Cannula 2 11/19/17 08:55 75 20 114/94 100 Oxymask 10 11/19/17 08:49 36.2 83 24 114/94 95 Oxymask 10 11/19/17 06:13 37 80 20 157/92 98 Room Air Notes Mental Status: alert / awake / arousable, participated in evaluation Pt Amnestic to Procedure: Yes Nausea / Vomiting: adequately controlled Pain: adequately controlled Airway Patency, RR, SpO2: stable & adequate BP & HR: stable & adequate Hydration State: stable & adequate Neuraxial Anesthesia: was administered, sensory block is resolving Anesthetic Complications: no major complications apparent
[2017-11-19] MEDS: KETOROLAC TROMETHAMINE 30 MG/ML VIAL IV. SCH ×2 (12:32→18:58)
[2017-11-19] MEDS: FERROUS GLUCONATE 324 MG TAB PO SCH ×2 (12:32→17:10)
[2017-11-19] MEDS: DOCUSATE SODIUM 100 MG CAP PO SCH ×2 (12:33→21:53)
[2017-11-19] MEDS: LISINOPRIL 10 MG TAB PO SCH (12:33)
[2017-11-19] MEDS: MULTIVITAMIN TAB PO SCH (12:33)
[2017-11-19] MEDS: D5W AND 1/2NSS + 20MEQ KCL 1,000 ML IV SCH ×2 (12:34→22:01)
[2017-11-19] MEDS: CEFAZOLIN IV 2,000 MG in SYRINGE 0 ML IV SCH ×2 (13:38→21:53)
[2017-11-19] MEDS: ACETAMINOPHEN 500 MG TAB PO SCH ×2 (13:39→22:00)
[2017-11-19] MEDS: OXYCODONE HCL IR 5 MG TAB (IMMEDIATE RELEASE) PO PRN ×3 (13:43→21:52)
[2017-11-19] MEDS ORDERED: ATORVASTATIN 10 MG TAB PO SCH (17:00)
[2017-11-19] MEDS: ASPIRIN 81 MG ECTAB PO SCH (21:53)
[2017-11-20] MEDS: KETOROLAC TROMETHAMINE 30 MG/ML VIAL IV. SCH ×2 (00:11→05:54)
[2017-11-20 03:16] VITALS: BP 111/71; PULSE 79; TEMP 36.7; O2SAT 97
[2017-11-20] MEDS: ONDANSETRON INJ 2 MG/ML 2 ML VIAL IV PRN ×2 (05:55→16:22)
[2017-11-20] MEDS: ACETAMINOPHEN 500 MG TAB PO SCH ×3 (05:56→21:37)
[2017-11-20 07:19] LABS: HEMATOCRIT 31.6 % (37-47); HEMOGLOBIN 10.6 g/dL (12.0-16.0); MEAN CORPUSCULAR HEMOGLOBIN 31.5 pg (25-34); MEAN CORPUSCULAR HGB CONC 33.5 g/dl (32-36); MEAN PLATELET VOLUME 10.6 fL (7.4-10.4); PLATELET COUNT 184 K/uL (130-400); RED CELL DISTRIBUTION WIDTH CV 12.6 % (11.5-14.5); RED CELL DISTRIBUTION WIDTH SD 43.3 fL (36.4-46.3); WHITE BLOOD COUNT 11.83 K/uL (4.8-10.8)
[2017-11-20 07:20] VITALS: BP 124/79; PULSE 72; TEMP 36.9; O2SAT 98
[2017-11-20] MEDS ORDERED: DEXAMETHASONE INJ 10 MG in SYRINGE 0 ML IV SCH (07:30)
[2017-11-20] MEDS: D5W AND 1/2NSS + 20MEQ KCL 1,000 ML IV SCH (07:30)
[2017-11-20 07:37] LABS: CALCIUM 8.1 mg/dl (8.5-10.1); CREATININE 0.71 mg/dl (0.60-1.20); POTASSIUM 4.3 mmol/L (3.5-5.1)
[2017-11-20] MEDS: OXYCODONE HCL IR 5 MG TAB (IMMEDIATE RELEASE) PO PRN ×3 (08:00→19:26)
--- NOTE | 2017-11-20 08:39 | Orthopedic Progress Note ---
Orthopedic Progress Note Date of Service Nov 20, 2017. Subjective Post OP Day: 1 Reports: feeling well, pain controlled w PO medications, Denies: complaints, chest pain, SOB, nausea / vomiting, light headedness, calf pain Additional Notes: Patient notes that she has some difficulties bringing up her foot still. She is able to feel when her foot is down on the floor. Objective calves soft nontender, N/V intact, capillary refill less than 2 sec., dressing C /D/I, A&O x3, toes mobile, hemovac drainage (355/100) Mild foot drop noted for the left foot. She is able to colleen and invert and plantar flex. She has normal sensation as well. Difficulty with dorsiflexion. Date Time Temp Pulse Resp B/P (MAP) Pulse Ox O2 Delivery O2 Flow Rate FiO2 11/20/17 07:20 36.9 72 16 124/79 (94) 98 Room Air 11/20/17 03:16 36.7 79 15 111/71 (84) 97 Room Air 11/20/17 00:00 Room Air 11/19/17 23:00 37.1 78 16 131/78 (95) 95 Room Air 11/19/17 19:15 36.9 94 16 128/83 (98) 94 Room Air 11/19/17 15:52 16 94 Room Air 11/19/17 15:50 Nasal Cannula 2.0 11/19/17 15:03 36.7 73 18 131/78 (95) 97 Nasal Cannula 2.0 11/19/17 12:50 36.6 77 19 110/70 (83) 97 Nasal Cannula 2.0 11/19/17 11:50 36.9 76 18 123/76 (92) 97 Nasal Cannula 2.0 11/19/17 10:49 36.3 69 19 144/85 (104) 97 Nasal Cannula 2.0 11/19/17 10:20 37.0 66 19 123/80 (94) 97 Nasal Cannula 2.0 11/19/17 09:50 Nasal Cannula 2.0 11/19/17 09:50 95 Nasal Cannula 2.0 11/19/17 09:50 36.7 68 16 111/71 (84) 95 Nasal Cannula 2.0 11/19/17 09:35 36.6 71 20 119/76 98 Nasal Cannula 2 11/19/17 09:25 36.6 68 18 120/72 98 Nasal Cannula 2 11/19/17 09:15 72 14 114/71 97 Nasal Cannula 2 11/19/17 09:05 74 15 118/73 96 Nasal Cannula 2 11/19/17 08:55 75 20 114/94 100 Oxymask 10 11/19/17 08:49 36.2 83 24 114/94 95 Oxymask 10 Laboratory Results 24 Hours: Test 11/20/17 06:48 Hematocrit 31.6 % Hemoglobin 10.6 g/dL Assessment & Plan Assessment: POD#1 S/P Left TKA Plan: Medical Management - Mild foot drop; will continue to watch and re-evaluate later today DVT - ASA PT/OT Discharge - Home with home health
[2017-11-20] MEDS: FERROUS GLUCONATE 324 MG TAB PO SCH ×3 (08:46→17:55)
[2017-11-20] MEDS: ASPIRIN 81 MG ECTAB PO SCH ×2 (08:47→20:37)
[2017-11-20] MEDS: MULTIVITAMIN TAB PO SCH (08:47)
[2017-11-20] MEDS: DOCUSATE SODIUM 100 MG CAP PO SCH ×2 (08:47→20:37)
[2017-11-20] MEDS: PANTOprazole SOD 40 MG TAB PO SCH (08:48)
[2017-11-20 08:49] VITALS: BP 131/82; PULSE 66
[2017-11-20] MEDS: LISINOPRIL 10 MG TAB PO SCH (08:50)
--- NOTE | 2017-11-20 11:05 | Anesthesiology Progress Note ---
Anesthesia Post Op Note Date & Time Nov 20, 2017 at 11:00 Vital Signs Pain Intensity: 6.0 Vital Signs Past 12 Hours Date Time Temp Pulse Resp B/P (MAP) Pulse Ox O2 Delivery O2 Flow Rate FiO2 11/20/17 08:49 66 131/82 (98) 11/20/17 08:00 Room Air 11/20/17 07:20 36.9 72 16 124/79 (94) 98 Room Air 11/20/17 03:16 36.7 79 15 111/71 (84) 97 Room Air 11/20/17 00:00 Room Air Notes Mental Status: alert / awake / arousable, participated in evaluation Pt Amnestic to Procedure: Yes Nausea / Vomiting: adequately controlled Pain: adequately controlled Airway Patency, RR, SpO2: stable & adequate BP & HR: stable & adequate Hydration State: stable & adequate Neuraxial Anesthesia: sensory block is resolving Anesthetic Complications: Up in chair, pain controlled. C/O numbness in sole of left foot, improved from first day post op. Doing better. Dr. Ninfa lawrence. Will follow up with patient today.
[2017-11-20 11:11] VITALS: BP 135/86; PULSE 67; TEMP 36.6; O2SAT 95
--- NOTE | 2017-11-20 14:07 | Anesthesiology Progress Note ---
Anesthesia Post Op Note Date & Time Nov 20, 2017 at 13:56 Vital Signs Pain Intensity: 8.0 Vital Signs Past 12 Hours Date Time Temp Pulse Resp B/P (MAP) Pulse Ox O2 Delivery O2 Flow Rate FiO2 11/20/17 11:11 36.6 67 17 135/86 (102) 95 Room Air 11/20/17 08:49 66 131/82 (98) 11/20/17 08:00 Room Air 11/20/17 07:20 36.9 72 16 124/79 (94) 98 Room Air 11/20/17 03:16 36.7 79 15 111/71 (84) 97 Room Air Notes Mental Status: alert / awake / arousable, participated in evaluation Pt Amnestic to Procedure: Yes Nausea / Vomiting: adequately controlled Pain: adequately controlled Airway Patency, RR, SpO2: stable & adequate BP & HR: stable & adequate Hydration State: stable & adequate Neuraxial Anesthesia: was administered, sensory block resolved Anesthetic Complications: no major complications apparent Anesthetic Complications: Patient reported altered sensation in her left foot and ankle as well as inability to dorsiflex at the left ankle that lasted until early this morning. She reports that starting midmorning today that these symptoms began to resolve and currently she is able to detect gross sensation throughout on her left leg and foot. She is also able to dorsiflex and plantarflex at the left ankle, although she reports that it is harder to dorsiflex right now than usual. I talked with the patient about her symptoms and reassured her that the rapid improvement over the last few hours is a good indicator that her symptoms should continue to improve. These findings are unlikely to be from the patient' s spinal, but it is possible that her adductor canal block may have been contributing to some of her findings, especially with respect to feelings of altered sensation in the left leg. The peripheral never block normally lasts about 24 hours and should continue to resolve throughout the day today. Overall the patient was satisfied with her anesthetic care. I encouraged her to reach out to the anesthesia staff if her symptoms do not continue to improve.
[2017-11-20 15:51] VITALS: BP 130/83; PULSE 65; TEMP 36.2; O2SAT 97
[2017-11-20] MEDS: CeleBREX 200 MG CAP PO SCH (20:37)
[2017-11-20 23:03] VITALS: BP 139/82; PULSE 72; TEMP 37; O2SAT 98
[2017-11-21] MEDS: ACETAMINOPHEN 500 MG TAB PO SCH (05:55)
[2017-11-21 06:04] VITALS: BP 156/89; PULSE 78; TEMP 36.5; O2SAT 97
[2017-11-21] MEDS: CeleBREX 200 MG CAP PO SCH (07:34)
[2017-11-21] MEDS: FERROUS GLUCONATE 324 MG TAB PO SCH (07:34)
[2017-11-21] MEDS: DOCUSATE SODIUM 100 MG CAP PO SCH (07:34)
[2017-11-21] MEDS: ASPIRIN 81 MG ECTAB PO SCH (07:35)
[2017-11-21] MEDS: PANTOprazole SOD 40 MG TAB PO SCH (07:35)
[2017-11-21] MEDS: MULTIVITAMIN TAB PO SCH (07:35)
[2017-11-21] MEDS: OXYCODONE HCL IR 5 MG TAB (IMMEDIATE RELEASE) PO PRN (07:36)
[2017-11-21 07:38] VITALS: BP 138/81; PULSE 76
[2017-11-21] MEDS: LISINOPRIL 10 MG TAB PO SCH (07:39)
--- NOTE | 2017-11-21 09:21 | Orthopedic Progress Note ---
Orthopedic Progress Note Date of Service Nov 21, 2017. Subjective Post OP Day: 2 Reports: feeling well, pain controlled w PO medications, Denies: complaints, chest pain, SOB, nausea / vomiting, light headedness, calf pain Objective calves soft nontender, N/V intact, capillary refill less than 2 sec., dressing C /D/I, A&O x3, toes mobile SILVERLON IN TACT DROP FOOT RESOLVED, FULL ROM ANKLE Date Time Temp Pulse Resp B/P (MAP) Pulse Ox O2 Delivery O2 Flow Rate FiO2 11/21/17 07:38 76 138/81 (100) 11/21/17 07:15 Room Air 11/21/17 06:04 36.5 78 16 156/89 (111) 97 Room Air 11/21/17 00:00 Room Air 11/20/17 23:03 37.0 72 16 139/82 (101) 98 Room Air 11/20/17 15:51 36.2 65 18 130/83 (99) 97 Room Air 11/20/17 15:06 Room Air 11/20/17 11:11 36.6 67 17 135/86 (102) 95 Room Air Assessment & Plan Assessment: POD#2 S/P Left TKA Plan: Medical Management - Mild foot drop; RESOLVED DVT - ASA PT/OT Discharge - Home with home health Attending Addendum: I have seen and examined the patient, and agree with ANTONIA Ramirez's assessment and plan. I am covering Orthopedic Surgery call for Dr. Sheikh, who is unavailable. Duarte Collins MD
[2017-11-21] MEDS ORDERED: ACET-24 PO (09:25)
[2017-11-21] MEDS ORDERED: ASPEC81 PO (09:25)
[2017-11-21] MEDS ORDERED: ONDA8TAB12 PO (09:25)
[2017-11-21] MEDS ORDERED: RXC5 PO (09:25)
[2017-11-21] MEDS ORDERED: CLB200 PO (09:25)
--- NOTE | 2017-11-21 09:26 | Discharge Instructions ---
Discharge Instructions Date of Service Nov 21, 2017. Admission Reason for Admission: Left Knee Osteoarthritis Discharge Discharge Diagnosis / Problem: LEFT TKA Discharge Goals Goal(s): Improve function Activity Recommendations Activity Limitations: as noted below . Instructions / Follow-Up Instructions / Follow-Up ACTIVITY RECOMMENDATIONS: SELF CARE INSTRUCTIONS AFTER TOTAL KNEE REPLACEMENT A. You may need to continue a physical therapy program after discharge from the hospital. There are several options available to you. Your doctor will assist you in selecting the best one for you. 1. An out-patient facility 2 to 3 times a week for therapy or home therapy. 2. Continue working on all exercises taught to you in the hospital. Your goals should be to increase bending of your knee to 90 degrees and beyond and to fully straighten your knee. B. You may progress at your own pace from walking with a walker or crutches to a cane; then to no assistive devices. C. Make walking a part of your daily routine. Be up as much as comfortable with rest periods throughout the day. Rest with leg elevation is very important. Use the ice wrap frequently for the first 3-4 weeks. D. There are no restrictions on activities. You may ride in a car, shop, participate in principal biostatistician and all social activities. E. Wear the long elastic stockings (HANY hose) 20 hours a day for 2 weeks after surgery. They can be removed several times a day for laundering and for a bath. F. You may shower, no tub baths until cleared by your doctor. SPECIAL CARE INSTRUCTIONS: VERY IMPORTANT TO READ AND REVIEW A. There are a few signs you need to watch for after you are home. Call [facility] [place] if you notice any of the followin. Increased severe knee pain. Some pain is expected especially when you exercise. 2. Increased swelling in your leg or knee; pain or swelling of the calf muscle in either lower leg. 3. Any fluid drainage from the incision. 4. Shortness of breath or chest pain. B. Please call [facility] at if you have any concerns or questions about your operation or recovery. The doctor or his nurse will return your call promptly. C. You must take antibiotics before dental work, bladder, bowel or other surgery. Your doctor will provide you with a permanent care to carry describing this precaution. IMPORTANT: * REMEMBER TO TAKE ASPIRIN, 81 MG, TWICE DAILY FOR 4 WEEKS UNLESS OTHERWISE DIRECTED. THIS IS YOUR BLOOD THINNER. * HIGH RISK PATIENTS MAY BE PRESCRIBED A STRONGER BLOOD THINNER. THIS WILL BE PROVIDED AT DISCHARGE. * CALL IF INCREASED PAIN, REDNESS, DRAINAGE OR FEVER GREATER THAT 101. * WEAR HANY HOSE 20 HOURS PER DAY FOR 2 WEEKS. * YOU MAY HAVE A LARGE BAND-AID LIKE DRESSING (SILVERON). THIS WILL REMAIN ON YOUR INCISION FOR 7 DAYS, THEN CAN BE REMOVED. IF INCISION IS LEAKING THROUGH DRESSING, CALL THE OFFICE . FOLLOW UP VISIT: If appointment is not already scheduled: Please call [facility] [place] to make a follow-up appointment for 2 weeks after your surgery at . Current Hospital Diet Patient's current hospital diet: Regular Diet Discharge Diet Recommended Diet: Regular Diet Procedures Procedures Performed: Left Total Knee Arthroplasty Pending Studies Studies pending at discharge: no Laboratory Results Hemoglobin A1c Test 10/20/17 13:17 Range/Units Estimated Average Glucose 120 mg/dl Hemoglobin A1c 5.8 H 4.5-5.6 % Medical Emergencies . Who to Call and When: Medical Emergencies: If at any time you feel your situation is an emergency, please call 911 immediately. . Non-Emergent Contact Non-Emergency issues call your: Primary Care Provider . "Provider Documentation" section prepared by Francesco Ramirez. . VTE Core Measure Inpt VTE Proph given/why not?: Other Anticoagulation (ASA), T.E.D. Stockings, SCD's [place] Drug Monitoring Program Search Results: patient reviewed within database, no issues identified
[2017-11-21 09:55] VITALS: BP 138/81; PULSE 76; TEMP 36.5; O2SAT 97
== END 2017-11-21 11:25 | disposition home health service (06) | DRG 470 ==
LOC: C.ACU 05:03 → C.3E 09:00 → ENRESERV 09:10
PROC: 0SRD0J9 Replacement of Left Knee Joint with Synthetic Substitute, Cemented, Open Approach (ICD-10-PCS; principal; 2017-11-19 07:00)
DX: M17.12 Unilateral primary osteoarthritis, left knee (principal); M21.372 Foot drop, left foot; I10 Essential (primary) hypertension; E78.00 Pure hypercholesterolemia, unspecified; E66.9 Obesity, unspecified; Z68.34 Body mass index [BMI] 34.0-34.9, adult; Z90.710 Acquired absence of both cervix and uterus; Z90.49 Acquired absence of other specified parts of digestive tract; Z98.890 Other specified postprocedural states; Z79.1 Long term (current) use of non-steroidal anti-inflammatories (NSAID); Z79.899 Other long term (current) drug therapy; Z91.041 Radiographic dye allergy status